=== PATIENT | female | born 1930 | race Caucasian/White ===

== ENCOUNTER 2016-07-07 18:48 | Emergency (ER) | payer OTHER, BC ==
[2016-07-07 18:56] VITALS: BMI 27.2
[2016-07-07] MEDS ORDERED: ADENOSINE 6 MG/2 ML VIAL IVPUSH ONE (19:30)
[2016-07-07] MEDS ORDERED: dilTIAZem HCL 125 MG/25 ML - 25 ML VIAL ONE ×2 (19:31→19:57)
--- NOTE | 2016-07-07 19:34 | PDOC ---
History of Present Illness - General History Source: Patient Exam Limitations: No Limitations - History of Present Illness Initial Comments: 07/07/16 20:08 Patient is a 86 year old female with a significant past medical history of stage 4 lung ca (chemotherapy currently, immunotherapy pills currently 8 pills daily and radiation complete 08/2015) and hypertension who presents to the ED with SOB progressively worsening over the past 3-4 days. As per family, the patient has productive cough and is bringing up dark brown sputum. Patient has been to be more sleepy as usual. Patient had one breathing treatment today. Patient has a PET scan scheduled tomorrow for her lung ca. She denies any fever, chills, chest pain, nausea, vomiting, diarrhea or constipation. <Agueda Hitchcock - Last Filed: 07/07/16 22:02> <Lux Gongora - Last Filed: 07/07/16 23:47> - General Chief Complaint: Shortness of Breath Stated Complaint: SOB Past History <Agueda Hitchcock - Last Filed: 07/07/16 22:02> - Past Medical History Cancer: Yes (LUNG) HTN: Yes - Psycho/Social/Smoking Cessation Hx Suicidal Ideation: No Smoking History: Never smoked Information on smoking cessation initiated: No <Lux Gongora - Last Filed: 07/07/16 23:47> - Past Medical History Allergies/Adverse Reactions: Allergies Allergy/AdvReac Type Severity Reaction Status Date / Time No Known Allergies Allergy Verified 07/07/16 18:56 Review of Systems - Review of Systems Able to Perform ROS?: Yes Comments:: 07/07/16 20:08 GENERAL/CONSTITUTIONAL: +weakness. No fever or chills. HEAD, EYES, EARS, NOSE AND THROAT: No change in vision. No ear pain or discharge. No sore throat. CARDIOVASCULAR: No chest pain. RESPIRATORY: +SOB, +cough. No wheezing, or hemoptysis. GASTROINTESTINAL: No nausea, vomiting, diarrhea or constipation. GENITOURINARY: No dysuria, frequency, or change in urination. MUSCULOSKELETAL: No joint or muscle swelling or pain. No neck or back pain. SKIN: No rash NEUROLOGIC: No headache, vertigo, loss of consciousness, or change in strength/ sensation. ENDOCRINE: No increased thirst. No abnormal weight change. HEMATOLOGIC/LYMPHATIC: No anemia, easy bleeding, or history of blood clots. ALLERGIC/IMMUNOLOGIC: No hives or skin allergy. <Agueda Hitchcock - Last Filed: 07/07/16 22:02> *Physical Exam - Vital Signs Last Vital Signs Temp Pulse Resp BP Pulse Ox 97.4 F L 80 20 88/58 94 L 07/07/16 18:51 07/07/16 18:51 07/07/16 18:51 07/07/16 18:51 07/07/16 18:51 - Physical Exam Comments: 07/07/16 22:03 GENERAL: Awake, alert, and fully oriented, +Comfortable, +speaking coherent, + answering questions appropriately. HEAD: No signs of trauma EYES: PERRLA, EOMI, sclera anicteric, conjunctiva clear ENT: Auricles normal inspection, hearing grossly normal, nares patent, oropharynx clear without exudates. Moist mucosa NECK: Normal ROM, supple, no lymphadenopathy, JVD, or masses LUNGS: +Diminished breath sounds on the left. No wheezes, and no crackles HEART: +Tachycardia, +flow murmur, normal S1 and S2, no rubs or gallops ABDOMEN: Soft, nontender, normoactive bowel sounds. No guarding, no rebound. No masses EXTREMITIES: +mild depitting edema. Normal range of motion. No clubbing or cyanosis. No cords, erythema, or tenderness NEUROLOGICAL: Cranial nerves II through XII grossly intact. Normal speech. SKIN: +Mild pallor. Warm, Dry, normal turgor, no rashes or lesions noted. + Capillary refill less than 2 seconds <Agueda Hitchcock - Last Filed: 07/07/16 22:02> - Vital Signs Last Vital Signs Temp Pulse Resp BP Pulse Ox 97.4 F L 80 20 88/58 94 L 07/07/16 18:51 07/07/16 18:51 07/07/16 18:51 07/07/16 18:51 07/07/16 18:51 <Lux Gongora - Last Filed: 07/07/16 23:47> Procedures - Central Line Central Line Lumen: triple Central Line Position: internal jugular (R) Anesthesia: 2% Lidocaine Amount of anesthesia (ccs): 5 Complications: none Post Central Line Insertion: sutured, good blood return - Intubation Time of Intubation: 15:00 Intubation Method: orotracheal Blade used: Mac Tube Size (Fr): 7.5 Medications: Etomidate, Succinylcholine Tube position @ lip (cm): 20 Tube position confirmed by: Direct visualization, CO2 detector, Breath sounds Breath Sounds after Intubation: equal Intubation Complications: no complications Post Intubation Xray: No <Lux Gongora - Last Filed: 07/07/16 23:47> ED Treatment Course - LABORATORY CBC & Chemistry Diagram: 07/07/16 20:00 07/07/16 20:00 <Agueda Hitchcock - Last Filed: 07/07/16 22:02> - LABORATORY CBC & Chemistry Diagram: 07/07/16 20:00 07/07/16 20:00 <Lux Gongora - Last Filed: 07/07/16 23:47> Medical Decision Making - Critical Care Time Total Critical Care Time (minutes): 180 Critical Care Statement: The care of this patient involved high complexity decision making to prevent further life threatening deterioration of the patient 's condition and/or to evalute & treat vital organ system(s) failure or risk of failure. - Medical Decision Making 07/07/16 21:05 86yo F with SOB, Afib with RVR and hypotension who has current active stage 4 lung malignancy. She has no significant hypoxia and color is good with cap refill <2s and mentating well. She is tachypnic and given supplemental oxygen with NRB; will obtain ABG potentially; she is given hydration support and put in Trendelenberg position; diltiazem boluses unhelpful and started on amiodarone bolus and drip for rate control; with the strong suspicion for PE, i have started heparin bolus and drip and creatinine is elevated which prevents a CT scan with contrast for PE evaluation. She will be given additional intervention prn; she is also given ASA 324mg PO. I have communicated with the pt's family members; pacer pads on the patient. 07/07/16 21:24 There is a leukocytosis and the CT shows a significant effusion of the LEFT lung which is likely causing significant afterload, which may explain the significantly elevated BNP; she continues to mentate well, and has no chest pain , palpitations and her SOB has resolved. She feels well at this time; awaiting official CT scan results; we cannot do a contrast study given the elevated creatinine. I have endorsed the patient to Luis, the ICU PULL WORKER who agrees with plan. Will endorse to hospitalist and also will contact surgery and cardiology for the effusion and new onset Afib. She has remained hemodynamically stable and mentating throughout the encounter. 07/07/16 21:40 Endorsed to [facility], will consult cardiology, ID and surgery. 07/07/16 21:55 I have spoken with cardiology, pulmonary/critical care and ID; all agree with intervention given so far. ID endorses the patient should have IR drainage of the effusion/consolidation; no pericardial effusion. 07/07/16 21:59 07/07/16 23:20 Pt is noted to have acutely decompensated and having confusion. She had rate controlled at that time; pacing is started and she is ET intubated on first pass without difficulty; CVC is also placed for pressors; she lost pulse after bradying down; efforts terminated when the son arrived and informs she has advanced directive. TOD 23:07. Admitting team did not have contact with the patient prior to the decompensation. Working diagnosis is likely massive PE in the setting of terminal cancer and probable paraneoplastic effusion vs consolidation. 07/07/16 23:45 I have contacted the service desk technician, organ donor network; will contact the PMD as possible. I have answered all questions of the son. certificate completed and given to the account information clerk. <Lux Gongora - Last Filed: 07/07/16 23:47> *DC/Admit/Observation/Transfer - Attestations Scribe Attestion: 07/07/16 20:08 Documentation prepared by JOEY Luna, acting as senior medical director for Lux Gongora MD. <Agueda Hitchcock - Last Filed: 07/07/16 22:02> - Discharge Dispostion Admit: Yes Decision to Admit order Date/Time: 07/07/16 21:23 - Attestations Physician Attestion: 07/07/16 21:23 I, Dr. Lux Gongora MD, attest that this document has been prepared under my direction and personally reviewed by me in its entirety. I further attest, that it accurately reflects all work, treatment, procedures and medical decision -making performed by me. <Lux Gongora - Last Filed: 07/07/16 23:47> Diagnosis at time of Disposition: Malignancy, Shortness of breath, Atrial fibrillation with rapid ventricular response, SIRS (systemic inflammatory response syndrome), Pleural effusion, Hypoxia Hypotension Qualifiers: Hypotension type: other hypotension type Qualified Code(s): I95.89 - Other hypotension Chronic renal disease Qualifiers: Chronic kidney disease stage: unspecified stage Qualified Code(s): N18.9 - Chronic kidney disease, unspecified Anemia Qualifiers: Anemia type: unspecified type Qualified Code(s): D64.9 - Anemia, unspecified - Discharge Dispostion Condition at time of disposition: Guarded - Referrals
[2016-07-07] MEDS ORDERED: ASPIRIN 81 MG CHEWABLE TABLETS PO ONE (19:46)
[2016-07-07] MEDS ORDERED: AZITHROMYCIN IVPB 500 MG in DEXTROSE 5%-WATER - 250 ML IVPB ONE (19:48)
[2016-07-07] MEDS ORDERED: CEFEPIME HCL 2 GM VIAL (RESTRICTED TO ID) IVPB ONE (19:49)
[2016-07-07] MEDS ORDERED: HEPARIN NA (PORCINE) 5,000 UNITS/ML 1ML VIAL ONE (19:59)
[2016-07-07] MEDS ORDERED: DILTIAZEM INJECTION 125 MG in DEXTROSE 5%-WATER - 100 ML IVPB SCH (20:00)
[2016-07-07] MEDS ORDERED: AMIODARONE HCL 150 MG/3 ML VIAL IVPUSH ONE (20:02)
[2016-07-07] MEDS ORDERED: AMIODARONE HCL 150 MG/3 ML VIAL ONE (20:06)
[2016-07-07] MEDS ORDERED: HEPARIN NA (PORCINE) 5,000 UNITS/ML 1ML VIAL IVPUSH PRN ×2 (20:09)
[2016-07-07] MEDS ORDERED: HEPARIN INFUSION - 500 ML IVPB SCH (20:15)
[2016-07-07] MEDS ORDERED: AMIODARONE HCL INJECTION 450 MG in DEXTROSE 5%-WATER - 241 ML IVPB SCH (20:15)
[2016-07-07 20:20] LABS: MCH 31.8 pg (25.7-33.7); MCHC 32.4 g/dl (32.0-36.0); MEAN CELL VOLUME 98.3 fl (80-96); PLATELET COUNT 207 K/MM3 (134-434); RDW 20.2 % (11.6-15.6); WHITE BLOOD COUNT 13.2 K/mm3 (4.0-10.0)
[2016-07-07 20:41] LABS: INR 1.34 (0.82-1.09); PROTHROMBIN TIME (PATIENT) 14.8 SEC (9.98-11.88)
[2016-07-07 20:52] LABS: ALBUMIN 2.3 g/dl (3.4-5.0); CALCIUM 7.7 mg/dL (8.5-10.1); COCKROFT - GAULT 15.5635; CREATININE 2.6 mg/dL (0.55-1.02); MAGNESIUM 2.8 mg/dL (1.8-2.4); PHOSPHOROUS 4.5 mg/dL (2.5-4.9); TOT PROT 5.4 g/dl (6.4-8.2)
[2016-07-07 20:53] LABS: TROPONIN I 0.03 ng/ml (0.00-0.05)
[2016-07-07 21:32] LABS: ANISOCYTOSIS 1+; HYPOCHROMIA 1+; PLATELET ESTIMATE ADEQUATE (NORMAL); POLYCHROMASIA 1+
[2016-07-07 21:47] VITALS: BP 88/60; PULSE 105; TEMP 97.9
[2016-07-07] MEDS: HEPARIN NA (PORCINE) 5,000 UNITS/ML 1ML VIAL IVPUSH PRN ×2 (21:50→21:51)
[2016-07-07] MEDS ORDERED: FUROSEMIDE 40 MG/4 ML INJECTABLE VIAL IVPUSH ONE (21:51)
[2016-07-07] MEDS ORDERED: HEPARIN INFUSION - 500 ML IVPB ONE (21:52)
[2016-07-07] MEDS ORDERED: AZITHROMYCIN IVPB 250 ML IVPB ONE (21:54)
[2016-07-07] MEDS ORDERED: VANCOMYCIN 1,000 MG in DEXTROSE 5%-WATER - 250 ML IVPB ONE (21:54)
[2016-07-07] MEDS ORDERED: methylPREDNISolone NA SUCC 125 MG/2 ML VIAL IVPB ONE (22:01)
[2016-07-07] MEDS ORDERED: ASPIRIN 325 MG TABLET ONE (22:28)
[2016-07-07] MEDS ORDERED: RAPID SEQUENCE INTUBATION KIT NR ONE (22:37)
--- NOTE | 2016-07-07 22:53 | CONSULT ---
Consult Consult Specialty:: infectious disease - Smoking History Smoking history: Never smoked Home Medications - Allergies Allergies/Adverse Reactions: Allergies Allergy/AdvReac Type Severity Reaction Status Date / Time No Known Allergies Allergy Verified 07/07/16 18:56 Physical Exam Vital Signs: Vital Signs Temperature 97.9 F 07/07/16 21:42 Pulse Rate 105 H 07/07/16 21:42 Respiratory Rate 22 07/07/16 21:42 Blood Pressure 88/60 07/07/16 21:42 O2 Sat by Pulse Oximetry (%) 95 07/07/16 21:42 Labs: CBC, BMP 07/07/16 20:00 07/07/16 20:00
[2016-07-07] MEDS ORDERED: CEFEPIME 1 GM/100 ML BAG PRE-DOCKED IVPB ONE (23:00)
[2016-07-07] MEDS ORDERED: NOREPINEPHRINE BITARTRATE 4 MG/4 ML ML IV ONE (23:04)
[2016-07-08 01:46] LABS: URINE APPEARANCE SL CLOUDY; URINE BILIRUBIN 1+ (NEGATIVE); URINE COLOR YELLOW; URINE GLUCOSE (UA) NEGATIVE (NEGATIVE); URINE KETONE TRACE (NEGATIVE)
[2016-07-08 01:47] LABS: PH,URINE 5.5 (5.0-8.0); URINE BLOOD TRACE (NEGATIVE)
[2016-07-08 01:48] LABS: URINE LEUK ESTERASE NEGATIVE (NEGATIVE); URINE NITRITE NEGATIVE (NEGATIVE); URINE PROTEIN TRACE (NEGATIVE); URINE UROBILINOGEN 1.0 E.U/dl E.U./dl (0.2-1.0)
[2016-07-08 01:57] LABS: URINE RBC 2 /hpf (0-3)
[2016-07-08 01:58] LABS: URINE WBC NONE SEEN /hpf (3-5)
[2016-07-08 01:59] LABS: URINE BACTERIA MANY /hpf (NONE SEEN); URINE MUCUS RARE
--- NOTE | 2016-07-08 12:46 | EKG ---
Test Reason : Blood Pressure : / mmHG Vent. Rate : 136 BPM Atrial Rate : 156 BPM P-R Int : 000 ms QRS Dur : 076 ms QT Int : 298 ms P-R-T Axes : 000 019 215 degrees QTc Int : 448 ms ATRIAL FIBRILLATION WITH RAPID VENTRICULAR RESPONSE ABNORMAL ECG NO PREVIOUS ECGS AVAILABLE CLINICAL CORRELATION IS RECOMMENDED BASELINE ARTIFACT Confirmed by FRED ABRAMS, ROBERTA ([id number]) on 07/08/2016 12:45:46 PM Referred By: Confirmed By:ROBERTA IBARRA MD
[2016-07-08] MEDS ORDERED: CEFEPIME 2 GM/100 ML BAG PRE-DOCKED IVPB SCH (22:00)
== END 2016-07-08 00:10 | disposition expired ==
LOC: JER 18:48 → UNDOADMIN 23:01 → JICU 23:01 → JERBED 07-08 05:35 → JICU 07-08 05:35
PROC: 0BH17EZ Insertion of Endotracheal Airway into Trachea, Via Natural or Artificial Opening (ICD-10-PCS; principal; 2016-07-07)
PROC: 05HM33Z Insertion of Infusion Device into Right Internal Jugular Vein, Percutaneous Approach (ICD-10-PCS; 2016-07-07)
PROC: 5A12012 Performance of Cardiac Output, Single, Manual (ICD-10-PCS; 2016-07-07)
PROC: 3E03329 Introduction of Other Anti-infective into Peripheral Vein, Percutaneous Approach (ICD-10-PCS; 2016-07-07)
PROC: 3E033GC Introduction of Other Therapeutic Substance into Peripheral Vein, Percutaneous Approach (ICD-10-PCS; 2016-07-07)
DX: I46.9 Cardiac arrest, cause unspecified (principal); C34.90 Malignant neoplasm of unspecified part of unspecified bronchus or lung; I48.91 Unspecified atrial fibrillation; D72.829 Elevated white blood cell count, unspecified; J90 Pleural effusion, not elsewhere classified; R09.02 Hypoxemia; I12.9 Hypertensive chronic kidney disease with stage 1 through stage 4 chronic kidney disease, or unspecified chronic kidney disease
CPT/HCPCS: 36415; 71010-TC; 71250-TC; 80053; 81003; 81015; 82550; 83605; 83690; 83735; 83880; 84100; 84484; 85025; 85610; 86850; 86900; 86901; 87040; 87086; 93005; 93010; 94002; 99285-25; J1644